=== PATIENT | male | born 1960 | race Two or more races ===

== ENCOUNTER 2018-07-03 21:10 | Emergency (ER) | payer SELFPAY ==
[~2018-07-03] VITALS: Ht 160 cm; Wt 63.5 kg
[2018-07-03 21:10] VITALS: BP 0/0
[2018-07-03] MEDS ORDERED: DEXTROSE (50%) 50ML SYRG IV ONE (21:14)
[2018-07-03] MEDS ORDERED: CALCIUM CHLOR(10%) 100MG/ML 10ML SYRINGE IV ONE (21:14)
[2018-07-03] MEDS ORDERED: EPINEPHrine HCL 1 MG/10 ML SYRG IV ONE (21:14)
[2018-07-03] MEDS ORDERED: SODIUM BICARBONATE 8.4% INJ 50ML SYRINGE IV ONE (21:14)
== END 2018-07-03 23:41 | disposition expired ==
LOC: ER 21:13
DX: I46.9 Cardiac arrest, cause unspecified (principal)
CPT/HCPCS: 31500; 92950; 99285; J0171; J7042